=== PATIENT | female | born 1955 | race Caucasian/White ===

== ENCOUNTER 2018-04-29 07:46 | Inpatient (IN) | payer MEDICARE, MEDICAID, SELFPAY ==
[2018-04-24 12:44] VITALS: BMI 48.2
[2018-04-29] VITALS (14 sets, daily range): BP systolic 104–154; BP diastolic 47–90; PULSE 61–86; RESP 12–17; TEMP 35.7–36.8; O2SAT 95–100; BMI 48.2
[2018-04-29] MEDS: PREGABALIN 75 MG CAPSULE PO (08:47)
[2018-04-29] MEDS: CELECOXIB 200 MG CAPSULE PO (08:47)
[2018-04-29] MEDS: LACTATED RINGERS 1,000 ML 42 ML IV ×2 (08:47→10:45)
--- NOTE | 2018-04-29 08:53 | SUR.PREOP ---
HELD THE PRESCRIBED TYLENOL THIS A.M. DUE TO PATIENT TOOK HER OWN, TOTAL 1000 MG @ 0530
--- NOTE | 2018-04-29 09:00 | DI.RAD.S_ITS ---
PROCEDURE: XR PELVIS 1-2V INDICATIONS: Postop left total hip arthroplasty TECHNIQUE: 1 view of the lower pelvis acquired. COMPARISON: None. FINDINGS: Bones: Patient is status post left hip arthroplasty, with hardware components in expected positions. The hip joint appears congruent. The visualized bony structures appear intact. Soft tissues: Overlying postoperative changes are noted. No suspicious soft tissue densities. Small electrode overlies the sacrum. IMPRESSION: Expected appearance of left hip arthroplasty. Dictated by: Rajani Petersno M.D. on 04/29/2018 at 14:35 Approved by: Rajani Peterson M.D. on 04/29/2018 at 14:36
--- NOTE | 2018-04-29 09:00 | DI.RAD.S_ITS ---
PROCEDURE: XR CHEST 2V INDICATIONS: history of COPD TECHNIQUE: 2 views of the chest were acquired. COMPARISON: [facility], CR, XR CHEST 1 VIEW, 09/28/2017, 13:30. FINDINGS: Surgical changes and devices: Lower cervical spine fixation hardware. Lungs and pleura: Lungs are clear. No pleural effusions or pneumothorax. Mediastinum: Mediastinal contours are normal. Heart size is prominent as before. Bones and chest wall: No suspicious bony abnormalities. Soft tissues appear unremarkable. IMPRESSION: No acute cardiopulmonary disease. Dictated by: Stewart Luciano [facility] Interpreted: Juan Oakley MD on 04/29/2018 at 8:20 Approved by: Juan Oakley M.D. on 04/29/2018 at 14:19
--- NOTE | 2018-04-29 09:22 | PM.PREOP ---
Pre-operative Note Interval Note History & Physical reviewed/Exam performed by Physician: Yes Changes to H&P: No
[2018-04-29] MEDS: CEFAZOLIN 2 GM/100 ML FROZ.PIGGY IV (09:40)
--- NOTE | 2018-04-29 10:10 | SUR.OPER ---
Right Lateral on padded OR bed. Gel axillary roll. Arms secured on padded armboard with pillow supporting top arm. Padded hip positioner braces x4 - anterior and posterior chest and pelvis. Additional gel pad used anterior pelvis. Gel pad under bottom leg from knee to foot and secured with tape over sheet.
[2018-04-29] MEDS: BUPIVACAINE 0.25% W/ EPI VIAL 50 ML INJ (10:16)
[2018-04-29] MEDS: TRANEXAMIC ACID 1,000 MG VIAL 1000 MG IV ×2 (10:20→11:10)
--- NOTE | 2018-04-29 11:05 | PC.NURSE ---
Day shift: Pt not on AC unit at this time.
--- NOTE | 2018-04-29 11:50 | PM.OP.1 ---
Operative Date/Time/Diagnoses Date of procedure: 04/29/18 Time of procedure: 11:50 Pre-op diagnosis: Left hip degenerative joint disease Post-op diagnosis: same Procedure & Clinicians Procedure: Left total hip arthroplasty (CPT code 46091 with assistant elementary teacher) Same procedure as scheduled: Yes Indications: Patient is an 62-year-old female with severe left hip DJD. The patient has pain with activities and at rest, limited ambulation and activity tolerance, difficulties with ADLs, and failure of conservative treatment. We have discussed the nature of condition, treatment options, risks and benefits, and patient elects to proceed with total hip arthroplasty and gives informed consent. Surgeon: Jimmy Peterson Rn Labor And Delivery: Shivam Gan Anesthesia Type: General and Spinal Operative Notes Closure Type: primary Specimen(s): none sent Prosthetic devices, grafts, tissues, transplants, or devices: Acetabulum: Denis and Nephew R3 acetabular component size 46 mm Femoral component: Denis and Nephew Anthology stem size 3 with standard offset Femoral head: 28 mm + 0 Oxinium Estimated Blood Loss (mL): 150 Blood products transfused: none Procedure in detail: After satisfaction induction of anesthetic, and administration of IV antibiotics, the patient was positioned in the lateral decubitus position with all bony prominences well padded and pelvic position secured using a hip almond pan finisher positioning device. Left hip and lower extremity prepped and draped in the usual sterile fashion, 1st dose of intravenous tranexamic acid was administered, then a longitudinal incision was created centered over the greater trochanter and carried sharply through the skin and subcutaneous tissues down to the fascia justice which was divided longitudinally and retracted with a Charnley retractor. External rotators visualize, cut, tagged, and retracted posteriorly, then the capsule was cut in a T-type fashion with the corners tagged and retracted. Hip was dislocated and femoral neck cut made according to preoperative templating. Acetabular retractors then placed, and the acetabular labrum and osteophytes were excised. The acetabulum was then sequentially reamed to 45 mm with an excellent circumferential ream and fit with the trial. The trial component was removed and a permanent size 46 mm Denis and Nephew R3 acetabular component was selected, positioned, and impacted with satisfactory position and fixation achieved. Permanent liner was then inserted with the elevated lip directed posteriorly. Soft tissue then removed off the lateral femoral neck in the lateral neck was entered using a box osteotome. T-handled reamers placed down the canal followed by sequential broaching to 3 with the final broach left in place for trial reduction which demonstrated excellent leg length, range of motion, and stability characteristics with a 28 mm +0 trial ball. The trial and broach were removed, and a permanent size 3 Denis and Nephew Anthology stem was selected and inserted with excellent position and fixation achieved. Another trial reduction yielded the above characteristics so the trial ball was exchanged for a permanent 28 mm +0 Oxinium ball. The hip was irrigated and reduced and excellent leg length range of motion and stability characteristics were achieved and maintained. Periarticular tissues were infiltrated with Marcaine. The hip was copiously irrigated, and the capsule repaired with #2 Ethibond, and the piriformis was repaired back to the greater trochanter with the same. Fascia justice closed with interrupted #1 Ethibond sutures, and the subcutaneous tissues were closed in 2 layers of 0 Vicryl and 2 0 Vicryl. Skin was closed with abel and sterile dressings applied. Second dose of tranexamic acid was administered intravenously, and the anesthetic was terminated. Complications: none Condition: stable Disposition: PACU Plan for aftercare: Patient will be admitted to the acute care james, and anticipate discharge on postop day 1 or 2 with follow-up in office in 10-14 days. Outpatient physical therapy will be arranged and patient will continue to observe posterior hip precautions. Patient will continue use of postoperative Lovenox for 10 days postop.
--- NOTE | 2018-04-29 11:53 | P.OP_ITS ---
Operative Date/Time/Diagnoses Date of procedure: 04/29/18 Time of procedure: 11:50 Pre-op diagnosis: Left hip degenerative joint disease Post-op diagnosis: same Procedure & Clinicians Procedure: Left total hip arthroplasty (CPT code 55421 with real estate executive assistant) Same procedure as scheduled: Yes Indications: Patient is an 62-year-old female with severe left hip DJD. The patient has pain with activities and at rest, limited ambulation and activity tolerance, difficulties with ADLs, and failure of conservative treatment. We have discussed the nature of condition, treatment options, risks and benefits, and patient elects to proceed with total hip arthroplasty and gives informed consent. Surgeon: Jimmy Peterson Sped Teacher: Shivam Gan Anesthesia Type: General and Spinal Operative Notes Closure Type: primary Specimen(s): none sent Prosthetic devices, grafts, tissues, transplants, or devices: Acetabulum: Denis and Nephew R3 acetabular component size 46 mm Femoral component: Denis and Nephew Anthology stem size 3 with standard offset Femoral head: 28 mm + 0 Oxinium Estimated Blood Loss (mL): 150 Blood products transfused: none Procedure in detail: After satisfaction induction of anesthetic, and administration of IV antibiotics, the patient was positioned in the lateral decubitus position with all bony prominences well padded and pelvic position secured using a hip supervisor welding equipment repairer positioning device. Left hip and lower extremity prepped and draped in the usual sterile fashion, 1st dose of intravenous tranexamic acid was administered, then a longitudinal incision was created centered over the greater trochanter and carried sharply through the skin and subcutaneous tissues down to the fascia justice which was divided longitudinally and retracted with a Charnley retractor. External rotators visualize, cut, tagged, and retracted posteriorly, then the capsule was cut in a T-type fashion with the corners tagged and retracted. Hip was dislocated and femoral neck cut made according to preoperative templating. Acetabular retractors then placed, and the acetabular labrum and osteophytes were excised. The acetabulum was then sequentially reamed to 45 mm with an excellent circumferential ream and fit with the trial. The trial component was removed and a permanent size 46 mm Denis and Nephew R3 acetabular component was selected, positioned, and impacted with satisfactory position and fixation achieved. Permanent liner was then inserted with the elevated lip directed posteriorly. Soft tissue then removed off the lateral femoral neck in the lateral neck was entered using a box osteotome. T- handled reamers placed down the canal followed by sequential broaching to 3 with the final broach left in place for trial reduction which demonstrated excellent leg length, range of motion, and stability characteristics with a 28 mm +0 trial ball. The trial and broach were removed, and a permanent size 3 Denis and Nephew Anthology stem was selected and inserted with excellent position and fixation achieved. Another trial reduction yielded the above characteristics so the trial ball was exchanged for a permanent 28 mm +0 Oxinium ball. The hip was irrigated and reduced and excellent leg length range of motion and stability characteristics were achieved and maintained. Periarticular tissues were infiltrated with Marcaine. The hip was copiously irrigated, and the capsule repaired with #2 Ethibond, and the piriformis was repaired back to the greater trochanter with the same. Fascia justice closed with interrupted #1 Ethibond sutures, and the subcutaneous tissues were closed in 2 layers of 0 Vicryl and 2 0 Vicryl. Skin was closed with abel and sterile dressings applied. Second dose of tranexamic acid was administered intravenously, and the anesthetic was terminated. Complications: none Condition: stable Disposition: PACU Plan for aftercare: Patient will be admitted to the acute care j[facility], and anticipate discharge on postop day 1 or 2 with follow-up in office in 10-14 days. Outpatient physical therapy will be arranged and patient will continue to observe posterior hip precautions. Patient will continue use of postoperative Lovenox for 10 days postop.
--- NOTE | 2018-04-29 12:15 | PC.NURSE ---
Day shift: Pt on unit from PACU at approx 1205. Oriented to room and call light. Tolerating SCD's. Family at bedside for support. Denies nausea. Denies any pain. Bulky dressing is CDI. VS WNL. PPP and CMS ok but sensation not totally returned. On cont. O2 monitor. CPAP in room. Call light in reach. High fall risk. Agrees to not get OOB w/o help and also agrees to follow hip precautions.
[2018-04-29] MEDS: hydrOXYzine pamoate 25 MG CAPSULE PO ×2 (13:19→19:49)
[2018-04-29] MEDS: HYDROMORPHONE 2 MG TABLET PO ×2 (13:19→18:42)
[2018-04-29] MEDS: LACTATED RINGERS 1,000 ML 125 ML IV ×2 (13:20→19:53)
--- NOTE | 2018-04-29 13:50 | PC.NURSE ---
Day shift: Pt hypotensive after getting OOB with PT to the [facility]. BP 69/39. Continue to monitor BP after back in bed. Back in bed now. Pt is clammy. Will notify MD if BP does not return.
[2018-04-29] MEDS: HYDROCODONE/ACET 5/325 TABLET 1 TAB PO ×2 (14:24→19:53)
--- NOTE | 2018-04-29 14:30 | PT.IIE ---
Current Diagnoses Unilateral primary osteoarthritis, left hip (04/29/18) Trochanteric bursitis, left hip (04/29/18) Surgery Performed Operation Date: 04/29/18 10:00 Actual Procedures p Total Hip Arthroplasty(Left) - Jimmy Peterson MD Surgical History (Last Updated 04/24/18 @ 13:21 by Jewell Nelson RN) History of arthroplasty of left knee (Acute) History of arthroplasty of right knee (Acute) History of bilateral carpal tunnel release (Acute) History of partial hysterectomy (Acute ~1981) Hx of cholecystectomy (Acute) Hx of tonsillectomy (Acute) S/P cervical spinal fusion (Acute ~05/2010) Status post implantation of urinary electronic stimulator device (Acute) Medical History (Last Updated 04/24/18 @ 13:21 by Jewell Nelson RN) Anxiety (Acute) Arthritis (Acute) Bronchitis (Acute) COPD (chronic obstructive pulmonary disease) (Acute) Chest pain (Acute ~2014) Chronic back pain (Acute) Chronic neck pain (Acute) Depression (Acute) Diabetes (Acute) Fibromyalgia (Acute) Former smoker (Acute) GERD (gastroesophageal reflux disease) (Acute) Ganglion cyst of dorsum of left wrist (Acute 10/03/16) Generalized headaches (Acute) H/O: hysterectomy (Acute) HTN (hypertension) (Acute) Hyperlipidemia (Acute) Numbness and tingling (Acute) EMILIA on CPAP (Acute) PTSD (post-traumatic stress disorder) (Acute) Pneumonia (Acute) RLS (restless legs syndrome) (Acute) Sciatica (Acute) Urinary incontinence (Acute) Physical Therapy Inpatient Evaluation/Re-Eval M1 PT/OT-IP Prior Functional Status Start: 04/29/18 13:58 Freq: NEEDED Status: Active Protocol: Document 04/29/18 13:59 NFW (Rec: 04/29/18 14:30 NFW [id number]) Medical Review Prior Functional Status Medical History Reviewed Yes Diet/Fluid Consistency Regular Mobility and Gait Patient reports that prior to surgery she would use a SPC prn around her home and outside. Activities of Daily Living and IADL's Patient reports that she was independent with all ADLs and hygiene. She was able to perform necessary activities around the home as needed such as laundry, light housekeeping, grocery shopping . Grocery shopping was difficult but able to complete . The patient does drive. Social History Household Members none Living Arrangements Apartment/Condo Number of Floors (Floors) One Floor Home Environment Standard Height Toilet Tub/Shower Home Equipment Front Wheel Walker Straight Cane Raised Toilet Seat w/Armrests Shuffle Board Operator Grab Bars In Shower Employment Status Retired Additional Social History Comment Patient's boyfriend will be staying with patient for the first 2-3 days. He lives in the same apartment complex as the patient just a few floors below. Apartment building does have an elevator. Patient's tub/shower has a cutout for easier access. M2 PT-IP Current Condition Start: 04/29/18 13:58 Freq: NEEDED Status: Active Protocol: Document 04/29/18 13:59 NFW (Rec: 04/29/18 14:30 NFW [id number]) Physical Therapy Current Condition Current Condition Evaluation Date 04/29/18 Treatment Diagnosis Left Hip Osteoarthritis; s/p L ERIKA 04/29/18 Precautions Posterior Hip Precautions No Hip Flexion > 90 degrees No Hip Internal Rotation No Hip Adduction Other Precautions Pacing of activities. Small steps with transfers. Weight Bearing Status Weight Bearing Status Full Weight Bearing M3 PT-IP Subjective Start: 04/29/18 13:58 Freq: NEEDED Status: Active Protocol: Document 04/29/18 13:59 NFW (Rec: 04/29/18 14:30 NFW [id number]) Subjective Physical Therapy Visit Type Type Initial Evaluation Visit Start Time 13:20 Visit Stop Time 14:00 Total Visit Minutes 40 Physical Therapy Visit Comments Patient Comments Patient states no numbness LEs . Has dire need to use commode. Patient Goals Return to her apartment with boyfriend for assist the first couple of days. M4 PT-IP Mobility and Gait Start: 04/29/18 13:58 Freq: NEEDED Status: Active Protocol: Document 04/29/18 13:59 NFW (Rec: 04/29/18 14:30 NFW [id number]) PT-Bed Mobility Assessment Supine to Sit Supine to Sit Minimal Assistance 1 Person Assistance Sit to Supine Sit to Supine Moderate Assistance 1 Person Assistance Scooting Scooting to Edge of Bed Contact Guard Assistance Scooting Up and Down in Bed Contact Guard Assistance PT-Transfer Assessment Sit to and From Stand Sit to and from Stand Minimal Assistance 1 Person Assistance Equipment Transfer Assistive Device Gait Belt Front Wheeled Walker Orthotic/Prosthetic Devices or Brace: No Transfers Transfer Destination Bed Bedside Commode Transfer Technique Stand Step Pivot Transfer Ability Level of Assist Minimal Assistance 1 Person Assistance Comments Mobility Comments Required review of proper technique to sit up in bed, slide LLE out to side to sit up. Once patient up and on commode she started feeling light headed, nauseated, clammy and cold. Called nursing for assistance. BP dropped from 129/69, pulse 70 to 86/52 to 69/35, pulse 56. Pt able to stand, step pivot transfer back to bed with min assist of three (for safety). Required assist of elevating LLE back into bed. Once supine BP 101/61, pulse 64. M5 PT-IP Objective Assessments Start: 04/29/18 13:58 Freq: NEEDED Status: Active Protocol: Document 04/29/18 13:59 NFW (Rec: 04/29/18 14:30 NFW [id number]) Orientation Orientation/Cognition Level of Alertness Alert Orientation Name Place Situation Language Function Ability No Deficits Noted Safety Awareness Understands Safety Issues Memory Description No Deficits Noted Sensation Assessment Sensation Gross Sensation WNL M7 PT-IP Assessment and Plan Start: 04/29/18 13:58 Freq: NEEDED Status: Active Protocol: Document 04/29/18 13:59 NFW (Rec: 04/29/18 14:30 NFW [id number]) PT Summary Assessment and Plan Potential Rehabilitation Potential Excellent Status of Condition at Evaluation Evolving Summary Impairments Pain ROM Strength Balance Coordination Sensation Tone Bed Mobility Transfers Gait Activity Tolerance Progress Towards Goals Progressing Toward Goals Assessment Summary Patient's surgery late morning today, had episode of hypotension once patient transfered to [facility]. Overall, performance of transfers good. Requires instruction just prior to performing activity. Overall, should do well once stabilized medically with BP. Goals Bed Mobility Goal Independent Transfer Goal Independent Gait Goal Independent Front Wheel Walker Gait Distance 100 Days to Meet Goals 2 Frequency of Treatment Frequency Of Treatment Twice a Day Treatment Plan Physical Therapy Treatment Plan Bed Mobility Training Transfer Training Gait Training Therapeutic Exercise Balance Retraining Post Op Education Hot or Cold Pack Other Recommendations and Next Treatment Could benefit from OT Focus evaluation for assist with dressing/hygiene. Recommendations To Nursing Amount of Assist Needed 1 Person Assist Discharge Recommendations PT Discharge Recommendations Home with Assistance
--- NOTE | 2018-04-29 15:15 | PC.NURSE ---
Day shift: Dr Peterson was made aware of low BP as stated in previous note. Dr Peterson also made aware of Pts pain control. He does not want to change anything at this time. Pt made aware of this.
[2018-04-29] MEDS: ACETAMINOPHEN 325 MG TABLET 975 MG PO (19:38)
[2018-04-29] MEDS: ATORVASTATIN 20 MG TABLET 40 MG PO (19:39)
[2018-04-29] MEDS: GABAPENTIN 100 MG CAPSULE 200 MG PO (19:42)
[2018-04-29] MEDS: LOSARTAN 50 MG TABLET PO (19:43)
[2018-04-29] MEDS: ASPIRIN EC 81 MG TABLET PO (19:44)
[2018-04-29] MEDS: ONDANSETRON 4 MG ODT PO (19:48)
[2018-04-30] VITALS (9 sets, daily range): BP systolic 108–150; BP diastolic 55–79; PULSE 78–100; RESP 12–20; TEMP 36.9–37.3; O2SAT 92–98
[2018-04-30] MEDS: HYDROCODONE/ACET 5/325 TABLET 1 TAB PO ×4 (00:44→20:27)
[2018-04-30] MEDS: HYDROMORPHONE 2 MG TABLET PO ×3 (03:10→12:44)
[2018-04-30] MEDS: ACETAMINOPHEN 325 MG TABLET 975 MG PO ×3 (07:02→20:19)
[2018-04-30 07:12] LABS: Hematocrit 35.4 % (36-46); Hemoglobin 11.7 g/dL (12.0-16.0)
--- NOTE | 2018-04-30 08:28 | PM.PNPO.1 ---
Subjective Date Patient Seen: 04/30/18 Time Patient Seen: 08:28 Interval history: Hospital day 2, postop day 1 following left total hip arthroplasty by Dr. Peterson. Patient states she did get some rest last night. She has remained stable postoperatively. She has been getting [place] 5/325 mg for pain and occasional Dilaudid 2 mg. She is on Lovenox 40 mg q.d.. Her order for postoperative Ancef did not go through. Patient has had some limited PT but they feel she is stable for home. Exam Vital Signs (past 8 hours): - 04/30/18 05:00 04/30/18 07:45 Temperature 98.8 F 98.5 F Pulse Rate 79 80 Respiratory Rate 16 16 Blood Pressure 150/76 H 108/76 Pulse Oximetry 98 96 Oxygen Delivery Method Room Air,CPAP Oxygen Flow Rate 0 Narrative Exam Narrative: Alert, oriented no acute distress resting in bed. Legs. Bulky dressing to left hip is dry without drainage or inflammation. No calf pain or swelling. Pulses symmetrical. Objective Labs Result Diagrams: 04/30/18 06:40 Labs: Laboratory Results - last 24 hr 04/30/18 06:40 Hgb 11.7 L Hct 35.4 L Assessment & Plan Post-op Postoperative Procedures Operation Date: 04/29/18 10:00 Actual Procedures Side Surgeon p Total Hip Arthroplasty Left Jimmy Peterson MD Plan: Patient will stay today for further therapy as she does not feel stable enough for home. She will have 2 doses of Ancef 2 g today. Anticipate discharge home tomorrow if she is stable. She is scheduled to go to [facility].
--- NOTE | 2018-04-30 09:13 | CM.DANOTE ---
Addendum entered by Laura Sawyer LPN 04/30/18 15:11: Received details of the transport from pt. Copy of same to red folder and to DCP/work sheet. Details: Bhanu: code Resv: [id number] d/c home May 01 or >. IH to to call as soon as d/c date is known. (Bhanu also brought pt to the hospital the morning of her surgery). Original Note: Addendum entered by Laura Sawyer LPN 04/30/18 11:28: P: home with Santana's assist and [facility]. All set up with [facility]: need only to notify them of day of d/c. Transport to be set up as per number that will be provided by pt. Original Note: Discharge Planning/Care Management DCP: assessment: case received, EMR reviewed and met with pt this morning. Introduced self and role. Pt is a 62 year old female who admitted yesterday for a planned L ERIKA: surgeon: Dr. Peterson. Posterior precautions. Payer: [facility] Medicare and Medicaid PT is ordered. Ortho SULLY Gardner confirms no need for OT order. Pt confirms that her boyfriend Santana Wager: [phone] will be helping her at home and he will be here today about noon. She says he does not drive so the initial plan she discussed with Dr. Peterson was to have [facility] come to the home for followup therapy. She states that her [facility] insurance has a benefit whereby they will transport her home (they also brought me to the hospital. She has the phone number in her bags and will pull it out when she is able to get up today. Will follow on this. Spoke then with Halie/[facility]ce [facility]AR[facility]. She confirms that she has received all needed information including the Face/Face and the orders for HH PT (she will have the PT assess for ? OT and obtain this if indicated after they see pt at home.) CM Discharge Assessment Start: 04/30/18 09:05 Freq: Status: Active Protocol: Document 04/30/18 09:06 ITV (Rec: 04/30/18 09:13 ITV [id number]) Discharge Planning Assessment Advance Directives? No: Declines further information, has paperwork at home Advance Directives on File No History Provided By Patient Medical Record Prior Living Arrangements Apartment/Condo Household Members none Independent with ADL's Yes Is patient alert and oriented? Yes Referrals Initiated Home Health Additional Comment Dr. Peterson and pt had chosen [facility] prior to this admission. Pt confirms same Halie/[facility] has requested initial clinical: TWIN Bell has faxed this. Whiteboard Updated in Patient Room with Yes name and ext. # of Electronic Resources Librarian Review Status In Process Next Review Type Continued Stay Review Pre-Anesthesia Assessment Start: 04/24/18 12:44 Freq: Status: Complete Protocol: Document 04/24/18 12:44 CAB (Rec: 04/24/18 13:37 CAB [id number]) Pre-Anesthesia Assessment PAC Comment Anesthesia review - requests CXR pre-op. SNO ordering on admit Patient Information Reviewed Via Phone Assessment Assessment Completed With Patient Diagnostic Results BMP/CMP CBC EKG Primary Care Provider David Gonzales Medical Clearance Received Yes Seen Specialist in Last 12 Months Yes Specialist Seen Orthopedist Primary Language [place] Shipfitter Helper Required No Height 154.94 cm Weight 115.666 kg Body Mass Index (BMI) 48.2 Hearing Ability Normal Visual Assist Glasses Dentition Type Full- Upper & Lower Barriers to Learning Visual Other Aids Yes: CPAP Hx Anesthesia Reactions No Hx Family Anesthesia Reaction No Hx Malignant Hyperthermia No Hx Blood Transfusions No Anesthesia Review Requested Yes: Surgeon requested re: Sleep Apnea, BMI, Diabetes Cardiac Rn No alcohol intake current alcohol intake frequency holidays/special occasions only Smoking Status Former smoker Tobacco type cigarettes how long ago did patient quit smoking Quit greater than 20 years ago Substance Use Type does not use Pain Present Pain Reported Musculoskeletal Symptoms Abnormal Gait Back Pain Difficulty Walking Joint Pain Neck Pain Numbness Radiating Pain into Limb History of Falling (Recent or History of No ) Patient is completely paralyzed or No completely immobile Prosthesis or Orthotic Device Cane Mental Status Oriented to own ability Is patient on oxygen? No Does patient have SANZ/SOB Yes: Hx COPD, pt c/o increase sob r/t current cold weather Hx Sleep Apnea Yes CPAP/BIPAP use prescribed and used routinely Will Bring CPAP/BIPAP DOS Yes Currently Taking a Beta Manda No Can You Climb a Flight of Stairs Without No: Hx COPD, pt c/o increase SOB sob r/t current cold weather Hx Chest Pain Yes: Occasional, goes away with rest, Cardiac w/u 2015- normal Hx SOB Yes: Hx COPD, pt c/o increase sob r/t current cold weather Hx Syncope or Dizziness Yes: Occasional pt feels r/t moving too fast Anti-Coagulant Therapy No Has a Community Recreation Coordinator No Cardiac Testing No Hx Pacemaker/ICD No Pacemaker Rep Required? No Cardiac Clearance Received Not Applicable Diet Type At Home Regular dysphagia Yes: Every once in awhile Bladder Pattern Urgency Urinary Catheter Present No Hx Urinary Self Catheterization No Comment Pt has a urinary nerve stimulator implanted to right buttock Diabetes Yes: Pt checks BS a couple times a week HgbA1C 6.4 Date 03/21/18 Patient No Lactating No Hx Drug Resistant Organism No Presence of External or Internal Medical Yes: Urinary nerve stimulator Devices to right buttock Have you traveled outside the [facility] in the last 30 days? Marital Status Lives With none Prior Living Arrangements Apartment/Condo Number of Floors (Floors) One Floor Support System Parent(s) Significant Other Does the Patient Have Assistance After Yes Surgery Patient Discharge Plan Description Return Home Comment Pt advised 1-2 day length of stay per surgeon's office. BF will assist @ DC Feels Safe in Current Environment Yes Been Physically Hurt or Threatened By a No Person in Current Environment Do you have thoughts of harming yourself None or others? Are you currently considering suicide? No Do you have a plan to hurt yourself or No Plan others? Do You Have Any Spiritual Beliefs That No May Affect Your HC Choices? Do You Have Any Cultural Practices That No May Affect Your HC Choices? Spiritual Referral None Who Can We Speak to About Patient's Care Family, friends Identifying Code for Release of Patient Declines to issue Information Health Care Proxy/Next of Kin Juliette (Mother) Health Care Proxy Emergency Contact Name Santana (boyfriend) Emergency Contact Advance Directives? No: Declines further information, has paperwork at home Advance Directives on File No Requested Patient Bring Advanced Yes Directives DOS Power of Metal Hanger No PAC Instructions Bring CPAP/BIPAP Do not shave/clip surgical site Durable medical equipment Medications to take/avoid Nasal antibiotic No ETOH/petroleum product on skin DOS NPO Pre-surgical wash Sensory aids Sturdy shoes/comfortable clothes Do not bring valuables and remove jewelry
[2018-04-30] MEDS: DULOXETINE 20 MG CAPSULE 40 MG PO (09:22)
[2018-04-30] MEDS: SODIUM CHLORIDE 0.9% FLUSH 10 ML IV ×2 (09:23→20:21)
[2018-04-30] MEDS: GABAPENTIN 100 MG CAPSULE 200 MG PO ×3 (09:23→20:20)
[2018-04-30] MEDS: ENOXAPARIN 40 MG/0.4 ML SYRINGE SUBCUT (09:23)
[2018-04-30] MEDS: hydrOXYzine pamoate 25 MG CAPSULE PO ×2 (09:24→20:22)
[2018-04-30] MEDS: CEFAZOLIN 2 GM/100 ML FROZ.PIGGY IV ×2 (09:58→17:53)
--- NOTE | 2018-04-30 12:53 | PT.IPTN ---
Current Diagnoses Unilateral primary osteoarthritis, left hip (04/29/18) Trochanteric bursitis, left hip (04/29/18) Surgery Performed Operation Date: 04/29/18 10:00 Actual Procedures p Total Hip Arthroplasty(Left) - Jimmy Peterson MD Physical Therapy Treatment Note M2 PT-IP Current Condition Start: 04/29/18 13:58 Freq: NEEDED Status: Active Protocol: Document 04/29/18 13:59 NFW (Rec: 04/29/18 14:30 NFW [id number]) Physical Therapy Current Condition Current Condition Evaluation Date 04/29/18 Treatment Diagnosis Left Hip Osteoarthritis; s/p L ERIKA 04/29/18 Precautions Posterior Hip Precautions No Hip Flexion > 90 degrees No Hip Internal Rotation No Hip Adduction Other Precautions Pacing of activities. Small steps with transfers. Weight Bearing Status Weight Bearing Status Full Weight Bearing M3 PT-IP Subjective Start: 04/29/18 13:58 Freq: NEEDED Status: Active Protocol: Document 04/30/18 11:50 NFW (Rec: 04/30/18 12:53 NFW [id number]) Subjective Physical Therapy Visit Type Type Treatment Note Visit Start Time 11:50 Visit Stop Time 12:19 Total Visit Minutes 29 Number of AUDITING CODER Visits 0 Physical Therapy Visit Comments Patient Comments Has been up a couple of times this am. Therapy Pain Assessment Pain When Pain Assessed At Rest Pain Present Pain Present Pain Reported Location Left Hip Intensity 5 Scale Used Numeric (1 - 10) Description Aching Sharp M4 PT-IP Mobility and Gait Start: 04/29/18 13:58 Freq: NEEDED Status: Active Protocol: Document 04/30/18 11:50 NFW (Rec: 04/30/18 12:53 NFW [id number]) PT-Bed Mobility Assessment Supine to Sit Supine to Sit Moderate Assistance 1 Person Assistance Sit to Supine Sit to Supine Minimal Assistance 1 Person Assistance Scooting Scooting to Edge of Bed Contact Guard Assistance Scooting Up and Down in Bed Contact Guard Assistance PT-Transfer Assessment Sit to and From Stand Sit to and from Stand Contact Guard Assistance 1 Person Assistance Equipment Transfer Assistive Device Gait Belt Front Wheeled Walker Orthotic/Prosthetic Devices or Brace: No Transfers Transfer Destination Bed Transfer Technique Stand Step Pivot Transfer Ability Level of Assist Contact Guard Assistance 1 Person Assistance Comments Mobility Comments Most difficulty going from supine to sitting requiring moderate assist. Otherwise, patient does well with CGA and verbal cuing. Minimal change in BP with change of position going from 141/66 supine to 156/72 sitting. Gait Assessment Gait Gait Assistance Required: Contact Guard Assist 1 Person Assist Distance (Feet) 100 Able to Maintain Weight Bearing Status No During Gait Assistive Devices Assistive Device Gait Belt Front Wheeled Walker Orthotic/Prosthetic Devices or Brace: No Gait Deviations General Gait Pattern Decreased Stride Length Decreased Feet Clearance Factors Limiting Gait Function Factors Limiting Gait Function Abnormal Tonal Influences Decreased Activity Tolerance Decreased Strength Limited Range of Motion Pain Comments Gait Comments Verbal cuing for proper technique in using FWW. Patient reports increase pain with FWB onto LLE, therefore shifting wt onto UEs as needed . Cuing to decrease stride length on left and increase on right. Cuing to increase hip /knee flexion at the initiation of swing phase LLE. M5 PT-IP Objective Assessments Start: 04/29/18 13:58 Freq: NEEDED Status: Active Protocol: Document 04/30/18 11:50 NFW (Rec: 04/30/18 12:53 NFW [id number]) Orientation Orientation/Cognition Level of Alertness Alert M6 PT-IP Treatment Start: 04/29/18 13:58 Freq: NEEDED Status: Active Protocol: Document 04/30/18 11:50 NFW (Rec: 04/30/18 12:53 NFW [id number]) Physical Therapy Treatment Exercises Exercises Ankle Pumps Gluteal Sets Quad Sets Heel Slides Education Education Provided Precautions Weight Bearing Status M7 PT-IP Assessment and Plan Start: 04/29/18 13:58 Freq: NEEDED Status: Active Protocol: Document 04/30/18 11:50 NFW (Rec: 04/30/18 12:53 NFW [id number]) PT Summary Assessment and Plan Summary Progress Towards Goals Progressing Toward Goals Assessment Summary BP has stabilized. Most difficulty with sitting from supine otherwise does quite well. Endurance low, quite fatigued after walk and transitional activities. Frequency of Treatment Frequency Of Treatment Twice a Day Recommendations To Nursing Amount of Assist Needed 1 Person Assist Discharge Recommendations PT Discharge Recommendations Home with Assistance
--- NOTE | 2018-04-30 15:25 | PT.IPTN ---
Current Diagnoses Unilateral primary osteoarthritis, left hip (04/29/18) Trochanteric bursitis, left hip (04/29/18) Surgery Performed Operation Date: 04/29/18 10:00 Actual Procedures p Total Hip Arthroplasty(Left) - Jimmy Peterson MD Physical Therapy Treatment Note M2 PT-IP Current Condition Start: 04/29/18 13:58 Freq: NEEDED Status: Active Protocol: Document 04/29/18 13:59 NFW (Rec: 04/29/18 14:30 NFW [id number]) Physical Therapy Current Condition Current Condition Evaluation Date 04/29/18 Treatment Diagnosis Left Hip Osteoarthritis; s/p L ERIKA 04/29/18 Precautions Posterior Hip Precautions No Hip Flexion > 90 degrees No Hip Internal Rotation No Hip Adduction Other Precautions Pacing of activities. Small steps with transfers. Weight Bearing Status Weight Bearing Status Full Weight Bearing M3 PT-IP Subjective Start: 04/29/18 13:58 Freq: NEEDED Status: Active Protocol: Document 04/30/18 15:08 NFW (Rec: 04/30/18 15:25 NFW [email or web address]) Subjective Physical Therapy Visit Type Type Treatment Note Visit Start Time 14:40 Visit Stop Time 15:07 Total Visit Minutes 27 Number of REHABILITATION THERAPY AIDE Visits 0 Physical Therapy Visit Comments Patient Comments Tired even thought she feels like she has slept most of the day. Pt seen to assist from commode. M4 PT-IP Mobility and Gait Start: 04/29/18 13:58 Freq: NEEDED Status: Active Protocol: Document 04/30/18 15:08 NFW (Rec: 04/30/18 15:25 NFW [id number]) PT-Bed Mobility Assessment Sit to Supine Sit to Supine Minimal Assistance 1 Person Assistance Scooting Scooting to Edge of Bed Contact Guard Assistance Scooting Up and Down in Bed Contact Guard Assistance PT-Transfer Assessment Sit to and From Stand Sit to and from Stand Contact Guard Assistance 1 Person Assistance Equipment Transfer Assistive Device Gait Belt Front Wheeled Walker Orthotic/Prosthetic Devices or Brace: No Transfers Transfer Destination Bed Chair Transfer Technique Stand Step Pivot Transfer Ability Level of Assist Contact Guard Assistance 1 Person Assistance Gait Assessment Gait Gait Assistance Required: Contact Guard Assist 1 Person Assist Distance (Feet) 120 Able to Maintain Weight Bearing Status No During Gait Assistive Devices Assistive Device Gait Belt Front Wheeled Walker Orthotic/Prosthetic Devices or Brace: No Gait Deviations General Gait Pattern Decreased Stride Length Decreased Feet Clearance Factors Limiting Gait Function Factors Limiting Gait Function Abnormal Tonal Influences Decreased Activity Tolerance Decreased Strength Limited Range of Motion Pain Comments Gait Comments Notable wb on UEs during stance phase of LLE. Technique in ambulation improved with equal strides and improved clearance. Overall, endurance low. M5 PT-IP Objective Assessments Start: 04/29/18 13:58 Freq: NEEDED Status: Active Protocol: Document 04/30/18 11:50 NFW (Rec: 04/30/18 12:53 NFW [id number]) Orientation Orientation/Cognition Level of Alertness Alert M6 PT-IP Treatment Start: 04/29/18 13:58 Freq: NEEDED Status: Active Protocol: Document 04/30/18 15:08 NFW (Rec: 04/30/18 15:25 NFW [email or web address]) Physical Therapy Treatment Exercises Exercises Ankle Pumps Gluteal Sets Quad Sets Education Education Provided Precautions Weight Bearing Status M7 PT-IP Assessment and Plan Start: 04/29/18 13:58 Freq: NEEDED Status: Active Protocol: Document 04/30/18 15:08 NFW (Rec: 04/30/18 15:25 NFW [email or web address]) PT Summary Assessment and Plan Summary Impairments Pain ROM Strength Balance Coordination Tone Bed Mobility Transfers Gait Activity Tolerance Assessment Summary Pt progressing with treatment. She is anxious about returning home for fear of losing her balance and falling . Frequency of Treatment Frequency Of Treatment Twice a Day Treatment Plan Physical Therapy Treatment Plan Bed Mobility Training Transfer Training Gait Training Therapeutic Exercise Balance Retraining Post Op Education Hot or Cold Pack Recommendations To Nursing Amount of Assist Needed 1 Person Assist Discharge Recommendations PT Discharge Recommendations Home with Assistance
[2018-04-30] MEDS: FLUTICASONE 220MCG HFA 120 PUFF INH (17:57)
[2018-04-30] MEDS: ATORVASTATIN 20 MG TABLET 40 MG PO (20:20)
[2018-04-30] MEDS: LOSARTAN 50 MG TABLET PO (20:20)
[2018-05-01] VITALS (8 sets, daily range): BP systolic 103–146; BP diastolic 48–74; PULSE 80–90; RESP 12–20; TEMP 36.5–37.5; O2SAT 91–98
[2018-05-01] MEDS: HYDROCODONE/ACET 5/325 TABLET 1 TAB PO ×5 (02:27→23:50)
[2018-05-01] MEDS: hydrOXYzine pamoate 25 MG CAPSULE PO ×2 (02:27→23:50)
[2018-05-01] MEDS: ACETAMINOPHEN 325 MG TABLET 975 MG PO ×2 (08:19→20:29)
[2018-05-01] MEDS: ENOXAPARIN 40 MG/0.4 ML SYRINGE SUBCUT (08:20)
[2018-05-01] MEDS: DULOXETINE 20 MG CAPSULE 40 MG PO (08:20)
[2018-05-01] MEDS: ASPIRIN EC 81 MG TABLET PO (08:20)
[2018-05-01] MEDS: GABAPENTIN 100 MG CAPSULE 200 MG PO ×2 (08:21→20:29)
[2018-05-01] MEDS: SODIUM CHLORIDE 0.9% FLUSH 10 ML IV (08:22)
--- NOTE | 2018-05-01 08:23 | PM.PNPO.1 ---
Subjective Date Patient Seen: 05/01/18 Time Patient Seen: 08:23 Interval history: Hospital day 3, postop day 2 following left total hip arthroplasty. Patient has been up off and on out of bed. [place] unsteady at times. PT has recommended patient be at home with home health PT. [facility] has been set up. She is using [place] 5/325 mg for pain. Exam Vital Signs (past 8 hours): - 05/01/18 05:25 05/01/18 07:34 Temperature 99.3 F Pulse Rate 85 Respiratory Rate 18 16 Blood Pressure 132/62 146/74 H Pulse Oximetry 95 98 Oxygen Delivery Method Room Air Oxygen Flow Rate 0 Narrative Exam Narrative: Alert, oriented no acute distress lying in bed. Legs. Bulky dressing to left hip is dry without drainage or inflammation. No calf pain or swelling. Pulses symmetrical. Objective Labs Result Diagrams: 04/30/18 06:40 Assessment & Plan Post-op Postoperative Procedures Operation Date: 04/29/18 10:00 Actual Procedures Side Surgeon p Total Hip Arthroplasty Left Jimmy Peterson MD Plan: We will change the dressing to CovRsite dressing. Will have patient work with physical therapy today. Anticipate discharge home tomorrow if she is stable and cleared by PT.
--- NOTE | 2018-05-01 10:23 | CM.DPC ---
DCP Cont: Checked in with patient. Pleasant. Lives in [place]. Discussed possible plan for discharge tomorrow. Confirmed with her that [facility] has already been set up at pre-operative appt. Also, have number to call for patient for transportation when she is ready for discharge. P: DCP to continue to follow. Patient should be discharged tomorrow if she is medically stable. Jess Rivera RN/Assembly Supervisor
--- NOTE | 2018-05-01 10:29 | PT.IPTN ---
Current Diagnoses Unilateral primary osteoarthritis, left hip (04/29/18) Trochanteric bursitis, left hip (04/29/18) Surgery Performed Operation Date: 04/29/18 10:00 Actual Procedures p Total Hip Arthroplasty(Left) - Jimmy Peterson MD Physical Therapy Treatment Note M2 PT-IP Current Condition Start: 04/29/18 13:58 Freq: NEEDED Status: Active Protocol: Document 04/29/18 13:59 NFW (Rec: 04/29/18 14:30 NFW [id number]) Physical Therapy Current Condition Current Condition Evaluation Date 04/29/18 Treatment Diagnosis Left Hip Osteoarthritis; s/p L ERIKA 04/29/18 Precautions Posterior Hip Precautions No Hip Flexion > 90 degrees No Hip Internal Rotation No Hip Adduction Other Precautions Pacing of activities. Small steps with transfers. Weight Bearing Status Weight Bearing Status Full Weight Bearing M3 PT-IP Subjective Start: 04/29/18 13:58 Freq: NEEDED Status: Active Protocol: Document 05/01/18 10:22 SA (Rec: 05/01/18 10:29 [email or web address]) Subjective Physical Therapy Visit Type Type Treatment Note Visit Start Time 09:05 Visit Stop Time 09:36 Total Visit Minutes 31 Number of BRICK KILN BURNER Visits 1 Physical Therapy Visit Comments Patient Comments Pt up in chair and agreeable to PT, reports feeling dizzy at times. Patient Goals Return to her apartment with boyfriend for assist the first couple of days. Therapy Pain Assessment Pain When Pain Assessed During Mobility Pain Present Pain Present Pain Reported Location Left Hip Intensity 5 Scale Used Numeric (1 - 10) Pain Management Techniques Apply Cold Modification of Treatment Re-positioning Timing of Activity with Medications M4 PT-IP Mobility and Gait Start: 04/29/18 13:58 Freq: NEEDED Status: Active Protocol: Document 05/01/18 10:22 SA (Rec: 05/01/18 10:29 [id number]) PT-Bed Mobility Assessment Supine to Sit Supine to Sit Minimal Assistance 1 Person Assistance Sit to Supine Sit to Supine Minimal Assistance 1 Person Assistance Scooting Scooting to Edge of Bed Contact Guard Assistance Scooting Up and Down in Bed Contact Guard Assistance PT-Transfer Assessment Sit to and From Stand Sit to and from Stand Contact Guard Assistance 1 Person Assistance Equipment Transfer Assistive Device Gait Belt Front Wheeled Walker Orthotic/Prosthetic Devices or Brace: No Transfers Transfer Destination Bed Chair Transfer Technique Stand Step Pivot Transfer Ability Level of Assist Contact Guard Assistance 1 Person Assistance Comments Mobility Comments Pt completed 5 Sit<>Stands from chair with SBA. Stand pivot txs with SBA-CGA and min cues. Supine<>sit with Min A to alexeimark LEs. Gait Assessment Gait Gait Assistance Required: Contact Guard Assist 1 Person Assist Distance (Feet) 75 Able to Maintain Weight Bearing Status No During Gait Assistive Devices Assistive Device Gait Belt Front Wheeled Walker Orthotic/Prosthetic Devices or Brace: No Gait Deviations General Gait Pattern Decreased Stride Length Decreased Feet Clearance Factors Limiting Gait Function Factors Limiting Gait Function Decreased Activity Tolerance Decreased Strength Limited Range of Motion Pain Comments Gait Comments Slow antalgic gait with cues for increasing step length and decreasing WBing through UEs. Pt uses FWW safely and c/o some dizziness but no LOB noted. Pt BPs WNLs. Stair Climbing Assessment Comments Stair Climbing Comments Pt lives in senior apartment with no stairs to enter. PT-Balance Assessment Comments Other Balance Tests/Deviations/Treatment Pt stood at sink x 4 min to : don dentures and wash face and hands with no LOB. M5 PT-IP Objective Assessments Start: 04/29/18 13:58 Freq: NEEDED Status: Active Protocol: Document 04/30/18 11:50 NFW (Rec: 04/30/18 12:53 NFW [id number]) Orientation Orientation/Cognition Level of Alertness Alert M6 PT-IP Treatment Start: 04/29/18 13:58 Freq: NEEDED Status: Active Protocol: Document 05/01/18 10:22 SA (Rec: 05/01/18 10:29 [id number]) Physical Therapy Treatment Exercises Exercises Ankle Pumps Gluteal Sets Quad Sets Education Education Provided Precautions Weight Bearing Status M7 PT-IP Assessment and Plan Start: 04/29/18 13:58 Freq: NEEDED Status: Active Protocol: Document 05/01/18 10:22 SA (Rec: 05/01/18 10:29 [id number]) PT Summary Assessment and Plan Potential Rehabilitation Potential Excellent Status of Condition at Evaluation Stable Summary Assessment Summary Pt progressing well with mobility, does have some anxiety about returning home but has help available and uses FWW safely. Frequency of Treatment Frequency Of Treatment Twice a Day Treatment Plan Physical Therapy Treatment Plan Bed Mobility Training Transfer Training Gait Training Therapeutic Exercise Balance Retraining Post Op Education Hot or Cold Pack Recommendations To Nursing Amount of Assist Needed 1 Person Assist Discharge Recommendations PT Discharge Recommendations Home with Assistance
[2018-05-01] MEDS: FLUTICASONE 220MCG HFA 120 PUFF INH ×2 (11:14→19:36)
--- NOTE | 2018-05-01 14:22 | PT.IPTN ---
Current Diagnoses Unilateral primary osteoarthritis, left hip (04/29/18) Trochanteric bursitis, left hip (04/29/18) Surgery Performed Operation Date: 04/29/18 10:00 Actual Procedures p Total Hip Arthroplasty(Left) - Jimmy Peterson MD Physical Therapy Treatment Note M2 PT-IP Current Condition Start: 04/29/18 13:58 Freq: NEEDED Status: Active Protocol: Document 04/29/18 13:59 NFW (Rec: 04/29/18 14:30 NFW [id number]) Physical Therapy Current Condition Current Condition Evaluation Date 04/29/18 Treatment Diagnosis Left Hip Osteoarthritis; s/p L ERIKA 04/29/18 Precautions Posterior Hip Precautions No Hip Flexion > 90 degrees No Hip Internal Rotation No Hip Adduction Other Precautions Pacing of activities. Small steps with transfers. Weight Bearing Status Weight Bearing Status Full Weight Bearing M3 PT-IP Subjective Start: 04/29/18 13:58 Freq: NEEDED Status: Active Protocol: Document 05/01/18 14:05 SA (Rec: 05/01/18 14:22 SA [id number]) Subjective Physical Therapy Visit Type Type Treatment Note Visit Start Time 13:02 Visit Stop Time 13:30 Total Visit Minutes 28 Number of HEAD ORTHOPEDIC TEAM PHYSICIAN Visits 2 Physical Therapy Visit Comments Patient Comments Pt sleeping after lunch this afternoon, agreeable to get up and have PT. Patient Goals To return home with her boyfriend to help. Therapy Pain Assessment Pain When Pain Assessed During Mobility Pain Present Pain Present Pain Reported Location Left Hip Intensity 4 Scale Used Numeric (1 - 10) Pain Management Techniques Apply Cold Modification of Treatment Re-positioning Timing of Activity with Medications M4 PT-IP Mobility and Gait Start: 04/29/18 13:58 Freq: NEEDED Status: Active Protocol: Document 05/01/18 14:05 SA (Rec: 05/01/18 14:22 SA [id number]) PT-Bed Mobility Assessment Rolling Type of Rolling Roll to Right Level of Assist Contact Guard Assistance Supine to Sit Supine to Sit Minimal Assistance 1 Person Assistance Sit to Supine Sit to Supine Minimal Assistance 1 Person Assistance Scooting Scooting to Edge of Bed Standby Assistance Scooting Up and Down in Bed Standby Assistance PT-Transfer Assessment Sit to and From Stand Sit to and from Stand Standby Assistance 1 Person Assistance Equipment Transfer Assistive Device Gait Belt Front Wheeled Walker Orthotic/Prosthetic Devices or Brace: No Transfers Transfer Destination Bed Toilet Transfer Technique Stand Step Pivot Transfer Ability Level of Assist Standby Assistance 1 Person Assistance Comments Mobility Comments PT CGA-SBA with all mobilities except SUP<>Sit where she needs Min A to get LLE over EOB. Gait Assessment Gait Gait Assistance Required: Contact Guard Assist 1 Person Assist Distance (Feet) 100 Able to Maintain Weight Bearing Status No During Gait Assistive Devices Assistive Device Gait Belt Front Wheeled Walker Orthotic/Prosthetic Devices or Brace: No Gait Deviations General Gait Pattern Antalgic Decreased Stride Length Decreased Feet Clearance Factors Limiting Gait Function Factors Limiting Gait Function Decreased Activity Tolerance Decreased Strength Limited Range of Motion Pain Comments Gait Comments Pt continues to ambulate slowly with excessive WBing through LEs, able to increase LLE WBing with cues and normalize gait. PT-Balance Assessment Comments Other Balance Tests/Deviations/Treatment Stand pivot txs on/off toilet : with SBA. Pt has elevated toilet seat at home, increased time for hygiene and cues for hip flexion precuation. M5 PT-IP Objective Assessments Start: 04/29/18 13:58 Freq: NEEDED Status: Active Protocol: Document 04/30/18 11:50 NFW (Rec: 04/30/18 12:53 NFW [id number]) Orientation Orientation/Cognition Level of Alertness Alert M6 PT-IP Treatment Start: 04/29/18 13:58 Freq: NEEDED Status: Active Protocol: Document 05/01/18 14:05 (Rec: 05/01/18 14:22 [id number]) Physical Therapy Treatment Exercises Exercises Ankle Pumps Gluteal Sets Heel Slides Supine Hip Abduction Education Education Provided Precautions Weight Bearing Status Other Treatments Other Treatment Performed Discussed d/c planning with patient. Pt nervous about going home even though she has all needed equipment and boyfriend there to assist her, also has PT set up at after d/c from hospital. M7 PT-IP Assessment and Plan Start: 04/29/18 13:58 Freq: NEEDED Status: Active Protocol: Document 05/01/18 14:05 (Rec: 05/01/18 14:22 [id number]) PT Summary Assessment and Plan Potential Rehabilitation Potential Excellent Status of Condition at Evaluation Stable Summary Impairments Pain ROM Strength Balance Coordination Tone Bed Mobility Transfers Gait Activity Tolerance Assessment Summary Pt SBA-CGA with all mobilities except Sup<>sit but has boyfriend available to assist and has FWW, elevated toilet seat, shower bench. Pt lives in senior apartment with no stairs to enter. Should be ready for d/c tomorrow. Frequency of Treatment Frequency Of Treatment Twice a Day Treatment Plan Physical Therapy Treatment Plan Bed Mobility Training Transfer Training Gait Training Therapeutic Exercise Balance Retraining Post Op Education Hot or Cold Pack Recommendations To Nursing Amount of Assist Needed 1 Person Assist Discharge Recommendations PT Discharge Recommendations Home with Assistance Home Health Other Discharge Recommendations Pt plans to have HHPT after d/ c from hospital. Equipment Needed for Home Before none Discharge
--- NOTE | 2018-05-01 15:19 | PC.NURSE ---
Day Shift. THis morning clarification with SULLY Abad to give both Lovenox and ASA as ordered. Pt is A&O able to make needs known. 1 SBA with FWW. 1230- rates pain 5/10 medicated per emar. 1430-pt is resting comfortably with eyes closed.
[2018-05-01] MEDS: ATORVASTATIN 20 MG TABLET 40 MG PO (20:29)
[2018-05-01] MEDS: LOSARTAN 50 MG TABLET PO (20:30)
[2018-05-02 04:35] VITALS: BP 142/72; PULSE 80; RESP 16; TEMP 36.7; O2SAT 96
[2018-05-02] MEDS: HYDROCODONE/ACET 5/325 TABLET 1 TAB PO ×2 (07:53→13:54)
[2018-05-02] MEDS: hydrOXYzine pamoate 25 MG CAPSULE PO ×2 (07:54→13:54)
--- NOTE | 2018-05-02 07:56 | PM.DS.1 ---
History of Present Illness Date Patient Seen: 05/02/18 Time Patient Seen: 07:56 Chief complaint: Left Total Hip Arthroplasty [id number] Narrative: Hospital day 4, postop day 3 for following left total hip arthroplasty. Patient has remained stable. She has progressed more with physical therapy. Has been recommended that she have home health PT because of limited transportation. [facility] will be seen the patient. Pain has improved. Patient ready for discharge home today. Discharge Providers Date of admission: 04/29/18 07:46 Primary care physician: Wild Rao Consults: 04/29/18 12:14 Consult to Discharge Planning Routine Comment: Consult to Physical Therapy Evaluate & Treat Comment: Physician Instructions: post op ERIKA protocol Consult to Respiratory Therapy Evaluate & Treat Comment: Physician Instructions: Evaluate and treat Discharge provider: Rafa Chisholm PA-C Discharge Date: 05/02/18 Summary Discharge Diagnosis: Status post left total hip arthroplasty. Hospital Course: Patient brought to hospital on 04/29/2018 for above noted surgery. She remained stable postoperatively. Slow progression with physical therapy. Ready for discharge home on postop day 3 with home health PT. Status at Discharge Cognitive/behavioral status at discharge: Alert, oriented no acute distress sitting in chair. Functional status at discharge: uses cane/walker Overall status at discharge: patient is progressing back to baseline Time Spent with Patient Less than 30 minutes Exam Vital Signs (past 8 hours): - 05/02/18 04:35 Temperature 98.1 F Pulse Rate 80 Respiratory Rate 16 Blood Pressure 142/72 H Pulse Oximetry 96 Oxygen Delivery Method Room Air Oxygen Flow Rate 0 Narrative Exam Narrative: Legs. Bulky dressing to left hip incision is dry without drainage or inflammation. No calf pain or swelling. Pulses symmetrical. Patient able do full extension from sitting position. Objective Labs Result Diagrams: 04/30/18 06:40 Discharge Plan Discharge Plan Patient Disposition: Home Discharge comment: Patient discharge home after cleared by PT. CovRsite dressing to left hip incision. Total hip precautions x6 weeks postop. Discharge Med Rec/Prescriptions Prescriptions: New enoxaparin [Lovenox] 40 mg/0.4 mL Syringe 40 mg subcut DAILY Qty: 7 RF: 0 Continued Lantus Solostar U-100 Insulin 100 UNIT/1 ML insulin pen 80 unit SQ QAM Qty: 0 RF: 0 Flovent Diskus 250 MCG blister with device 1 puff INH BID Qty: 0 RF: 0 losartan 50 mg Tablet 50 mg PO BEDTIME RF: 0 atorvastatin 40 mg Tablet 40 mg PO BEDTIME RF: 0 aspirin 81 mg Tablet,Delayed Release (Dr/Ec) 81 mg PO DAILY RF: 0 acetaminophen [Tylenol Extra Strength] 500 mg Tablet 1,000 mg PO TID RF: 0 ranitidine HCl 150 mg Capsule 150 mg PO BID RF: 0 gabapentin 100 mg Capsule 200 mg PO TID RF: 0 ProAir HFA 90 mcg/actuation Hfa Aerosol Inhaler 2 - 4 puff INHALATION Q4H PRN (Reason: copd) RF: 0 losartan 50 mg 50 mg DAILY RF: 0 ranitidine HCl 150 mg 150 mg BID RF: 0 duloxetine 20 mg 40 mg DAILY RF: 0 Discontinued duloxetine 20 mg Capsule,Delayed Release(Dr/Ec) 40 mg PO DAILY RF: 0 Follow up/Referrals: Wild Rao [Primary Care Provider] - Provider Discharge Instructions Diet: Diet as Tolerated Activity: Ambulate as tolerated. Total hip precautions x6 weeks postop. Use walker as needed. Cold/Heat Therapy: Cold pack to left hip is needed. Skin/Wound/Dressing Care Report to your healthcare provider any signs of infection, such as:: chills, fever, night sweats, increased pain, unusual drainage and unusual redness Dressing: Keep CovRsite dressing in place until postop visit. Visit Report/Discharge Packet Instructions: DI for Hip Replacement Discharge Data Primary Care Provider: Wild Rao Attending Provider: Jimmy Peterson Admit Date/Time: 04/29/18 07:46
[2018-05-02 08:00] VITALS: BP 122/67; PULSE 81; RESP 18; TEMP 37.2; O2SAT 97
--- NOTE | 2018-05-02 08:01 | P.DS_ITS ---
History of Present Illness Date Patient Seen: 05/02/18 Time Patient Seen: 07:56 Chief complaint: Left Total Hip Arthroplasty [id number] Narrative: Hospital day 4, postop day 3 for following left total hip arthroplasty. Patient has remained stable. She has progressed more with physical therapy. Has been recommended that she have home health PT because of limited transportation. [facility] will be seen the patient. Pain has improved. Patient ready for discharge home today. Discharge Providers Date of admission: 04/29/18 07:46 Primary care physician: Wild Rao Consults: 04/29/18 12:14 Consult to Discharge Planning Routine Comment: Consult to Physical Therapy Evaluate & Treat Comment: Physician Instructions: post op ERIKA protocol Consult to Respiratory Therapy Evaluate & Treat Comment: Physician Instructions: Evaluate and treat Discharge provider: Rafa Chisholm PA-C Discharge Date: 05/02/18 Summary Discharge Diagnosis: Status post left total hip arthroplasty. Hospital Course: Patient brought to hospital on 04/29/2018 for above noted surgery. She remained stable postoperatively. Slow progression with physical therapy. Ready for discharge home on postop day 3 with home health PT. Status at Discharge Cognitive/behavioral status at discharge: Alert, oriented no acute distress sitting in chair. Functional status at discharge: uses cane/walker Overall status at discharge: patient is progressing back to baseline Time Spent with Patient Less than 30 minutes Exam Vital Signs (past 8 hours): - 05/02/18 04:35 Temperature 98.1 F Pulse Rate 80 Respiratory Rate 16 Blood Pressure 142/72 H Pulse Oximetry 96 Oxygen Delivery Method Room Air Oxygen Flow Rate 0 Narrative Exam Narrative: Legs. Bulky dressing to left hip incision is dry without drainage or inflammation. No calf pain or swelling. Pulses symmetrical. Patient able do full extension from sitting position. Objective Labs Result Diagrams: 04/30/18 06:40 Discharge Plan Discharge Plan Patient Disposition: Home Discharge comment: Patient discharge home after cleared by PT. CovRsite dress ing to left hip incision. Total hip precautions x6 weeks postop. Discharge Med Rec/Prescriptions Prescriptions: New enoxaparin [Lovenox] 40 mg/0.4 mL Syringe 40 mg subcut DAILY Qty: 7 RF: 0 Continued Lantus Solostar U-100 Insulin 100 UNIT/1 ML insulin pen 80 unit SQ QAM Qty: 0 RF: 0 Flovent Diskus 250 MCG blister with device 1 puff INH BID Qty: 0 RF: 0 losartan 50 mg Tablet 50 mg PO BEDTIME RF: 0 atorvastatin 40 mg Tablet 40 mg PO BEDTIME RF: 0 aspirin 81 mg Tablet,Delayed Release (Dr/Ec) 81 mg PO DAILY RF: 0 acetaminophen [Tylenol Extra Strength] 500 mg Tablet 1,000 mg PO TID RF: 0 ranitidine HCl 150 mg Capsule 150 mg PO BID RF: 0 gabapentin 100 mg Capsule 200 mg PO TID RF: 0 ProAir HFA 90 mcg/actuation Hfa Aerosol Inhaler 2 - 4 puff INHALATION Q4H PRN (Reason: copd) RF: 0 losartan 50 mg 50 mg DAILY RF: 0 ranitidine HCl 150 mg 150 mg BID RF: 0 duloxetine 20 mg 40 mg DAILY RF: 0 Discontinued duloxetine 20 mg Capsule,Delayed Release(Dr/Ec) 40 mg PO DAILY RF: 0 Follow up/Referrals: Wild Rao [Primary Care Provider] - Provider Discharge Instructions Diet: Diet as Tolerated Activity: Ambulate as tolerated. Total hip precautions x6 weeks postop. Use walker as needed. Cold/Heat Therapy: Cold pack to left hip is needed. Skin/Wound/Dressing Care Report to your healthcare provider any signs of infection, such as:: chills, fever, night sweats, increased pain, unusual drainage and unusual redness Dressing: Keep CovRsite dressing in place until postop visit. Visit Report/Discharge Packet Instructions: DI for Hip Replacement Discharge Data Primary Care Provider: Wild Rao Attending Provider: Jimmy Peterson Admit Date/Time: 04/29/18 07:46
--- NOTE | 2018-05-02 09:27 | CM.DPC ---
DCP Cont: Patient is being discharged home today. Went ahead and called [facility], and updated Halie. She asked for a discharge summary to be faxed. Went ahead and faxed to her. P: Patient is to be discharged home today. Will have [facility]. Will call her transport number when she is ready. Jess Rivera RN/[employer]
--- NOTE | 2018-05-02 10:15 | PT.IPTN ---
Current Diagnoses Unilateral primary osteoarthritis, left hip (04/29/18) Trochanteric bursitis, left hip (04/29/18) Surgery Performed Operation Date: 04/29/18 10:00 Actual Procedures p Total Hip Arthroplasty(Left) - iJmmy Peterson MD Physical Therapy Treatment Note M2 PT-IP Current Condition Start: 04/29/18 13:58 Freq: NEEDED Status: Active Protocol: Document 04/29/18 13:59 NFW (Rec: 04/29/18 14:30 NFW [id number]) Physical Therapy Current Condition Current Condition Evaluation Date 04/29/18 Treatment Diagnosis Left Hip Osteoarthritis; s/p L ERIKA 04/29/18 Precautions Posterior Hip Precautions No Hip Flexion > 90 degrees No Hip Internal Rotation No Hip Adduction Other Precautions Pacing of activities. Small steps with transfers. Weight Bearing Status Weight Bearing Status Full Weight Bearing M3 PT-IP Subjective Start: 04/29/18 13:58 Freq: NEEDED Status: Active Protocol: Document 05/02/18 10:08 SA (Rec: 05/02/18 10:15 [email or web address]) Subjective Physical Therapy Visit Type Type Treatment Note Visit Start Time 09:13 Visit Stop Time 09:36 Total Visit Minutes 23 Number of MANAGER FILM Visits 3 Physical Therapy Visit Comments Patient Comments Hip pain at about a 5/10 and slept well last night. Patient Goals To return home with her boyfriend to help. Therapy Pain Assessment Pain When Pain Assessed During Mobility Pain Present Pain Present Pain Reported Location Left Hip Intensity 5 Scale Used Numeric (1 - 10) Pain Management Techniques Apply Cold Modification of Treatment Re-positioning Timing of Activity with Medications M4 PT-IP Mobility and Gait Start: 04/29/18 13:58 Freq: NEEDED Status: Active Protocol: Document 05/02/18 10:08 SA (Rec: 05/02/18 10:15 SA [id number]) PT-Transfer Assessment Sit to and From Stand Sit to and from Stand Standby Assistance 1 Person Assistance Equipment Transfer Assistive Device Gait Belt Front Wheeled Walker Orthotic/Prosthetic Devices or Brace: No Transfers Transfer Destination Bed Toilet Transfer Technique Stand Step Pivot Transfer Ability Level of Assist Standby Assistance 1 Person Assistance Comments Mobility Comments Pt up in chair at start of session. Stand pivot txs on/ off toilet and onto BSC in bathroom prior to shower. Pt mobilizing well although gaurded. Gait Assessment Gait Gait Assistance Required: Standby Assistance Contact Guard Assist 1 Person Assist Distance (Feet) 150 Able to Maintain Weight Bearing Status No During Gait Assistive Devices Assistive Device Gait Belt Front Wheeled Walker Orthotic/Prosthetic Devices or Brace: No Gait Deviations General Gait Pattern Antalgic Decreased Stride Length Decreased Feet Clearance Factors Limiting Gait Function Factors Limiting Gait Function Decreased Activity Tolerance Decreased Strength Limited Range of Motion Pain Comments Gait Comments Increased gait distance/ tolerance, pt still antalgic with gait but improving LLE WBing and posture. Stair Climbing Assessment Comments Stair Climbing Comments Pt lives in senior apartment with no stairs to enter. PT-Balance Assessment Sitting Balance and Reactions Static Sitting Balance Ability Normal Dynamic Sitting Balance Ability Normal Comments Other Balance Tests/Deviations/Treatment Pt completed standing heel : raises and lateral stepping at counter, no LOB and good tolerance. M5 PT-IP Objective Assessments Start: 04/29/18 13:58 Freq: NEEDED Status: Active Protocol: Document 04/30/18 11:50 NFW (Rec: 04/30/18 12:53 NFW [id number]) Orientation Orientation/Cognition Level of Alertness Alert M6 PT-IP Treatment Start: 04/29/18 13:58 Freq: NEEDED Status: Active Protocol: Document 05/02/18 10:08 SA (Rec: 05/02/18 10:15 [email or web address]) Physical Therapy Treatment Exercises Exercises Ankle Pumps Gluteal Sets Heel Slides Supine Hip Abduction Education Education Provided Precautions Weight Bearing Status Other Treatments Other Treatment Performed Pt to d/c home today. M7 PT-IP Assessment and Plan Start: 04/29/18 13:58 Freq: NEEDED Status: Active Protocol: Document 05/02/18 10:08 SA (Rec: 05/02/18 10:15 [email or web address]) PT Summary Assessment and Plan Potential Rehabilitation Potential Excellent Status of Condition at Evaluation Stable Summary Assessment Summary Pt progressing well with functional mobility and ready for d/c home today. Able to clear LLE over EOB with use of belt and SBA. Frequency of Treatment Frequency Of Treatment Twice a Day Treatment Plan Physical Therapy Treatment Plan Bed Mobility Training Transfer Training Gait Training Therapeutic Exercise Balance Retraining Post Op Education Hot or Cold Pack Recommendations To Nursing Amount of Assist Needed 1 Person Assist Discharge Recommendations PT Discharge Recommendations Home with Assistance Home Health Other Discharge Recommendations Pt plans to have HHPT after d/ c from hospital. Equipment Needed for Home Before none Discharge [id number]
[2018-05-02] MEDS: ACETAMINOPHEN 325 MG TABLET 975 MG PO (10:38)
[2018-05-02] MEDS: DULOXETINE 20 MG CAPSULE 40 MG PO (10:39)
[2018-05-02] MEDS: ASPIRIN EC 81 MG TABLET PO (10:39)
[2018-05-02] MEDS: ENOXAPARIN 40 MG/0.4 ML SYRINGE SUBCUT (10:40)
[2018-05-02] MEDS: GABAPENTIN 100 MG CAPSULE 200 MG PO (10:40)
[2018-05-02] MEDS: FLUTICASONE 220MCG HFA 120 PUFF INH (11:07)
[2018-05-02 11:09] VITALS: PULSE 85; RESP 16; O2SAT 95
--- NOTE | 2018-05-02 14:49 | CM.DPC ---
DCP Cont: Have been calling transport [employer] since 11:00am for patient, [facility]. They had originally stated that it would take a couple of hours to get back to us on a confirmation time. Had already been given confirmation number of: [id number]. Had spoken to 4 different reps for [place]. They had stated that they would be calling within the next few hours with a time of cigar packer and picker. Did let them know that patient walks with a walker. Patient had received a text stating that they were going to pick her up at 5:00. After she received text, called transportation service again, and they stated that they were going to pick her up any time outside of the hospital. Was able to get in contact with company tanker truck driver, Simone. Phone number was on patient's text. [phone]. He stated that he would wait for her. Nurse, Sharon, is in the process of getting patient ready now. Asked him if he could wait until she was ready, and he stated that he would. P: Patient is to be discharged home via transportation through [facility]. [facility] is aware that patient is discharging today. Jess Rivera RN/Script Girl
--- NOTE | 2018-05-02 14:53 | PT.IPTN ---
Current Diagnoses Unilateral primary osteoarthritis, left hip (04/29/18) Trochanteric bursitis, left hip (04/29/18) Surgery Performed Operation Date: 04/29/18 10:00 Actual Procedures p Total Hip Arthroplasty(Left) - Jimmy Peterson MD Physical Therapy Treatment Note M2 PT-IP Current Condition Start: 04/29/18 13:58 Freq: NEEDED Status: Active Protocol: Document 04/29/18 13:59 NFW (Rec: 04/29/18 14:30 NFW [id number]) Physical Therapy Current Condition Current Condition Evaluation Date 04/29/18 Treatment Diagnosis Left Hip Osteoarthritis; s/p L ERIKA 04/29/18 Precautions Posterior Hip Precautions No Hip Flexion > 90 degrees No Hip Internal Rotation No Hip Adduction Other Precautions Pacing of activities. Small steps with transfers. Weight Bearing Status Weight Bearing Status Full Weight Bearing M3 PT-IP Subjective Start: 04/29/18 13:58 Freq: NEEDED Status: Active Protocol: Document 05/02/18 14:46 SA (Rec: 05/02/18 14:53 [id number]) Subjective Physical Therapy Visit Type Type Treatment Note Visit Start Time 13:48 Visit Stop Time 14:17 Total Visit Minutes 29 Number of BUSINESS EDUCATION PROFESSOR Visits 4 Physical Therapy Visit Comments Patient Comments Pt in bed naping but agreeable to PT, rates hip pain as 6/10 . Therapy Pain Assessment Pain When Pain Assessed During Mobility Pain Present Pain Present Pain Reported Location Left Hip Intensity 6 Scale Used Numeric (1 - 10) Pain Management Techniques Apply Cold Modification of Treatment Re-positioning Timing of Activity with Medications M4 PT-IP Mobility and Gait Start: 04/29/18 13:58 Freq: NEEDED Status: Active Protocol: Document 05/02/18 14:46 SA (Rec: 05/02/18 14:53 [id number]) PT-Bed Mobility Assessment Rolling Type of Rolling Roll to Left Level of Assist Standby Assistance Supine to Sit Supine to Sit Contact Guard Assistance 1 Person Assistance Sit to Supine Sit to Supine Contact Guard Assistance 1 Person Assistance Scooting Scooting to Edge of Bed Standby Assistance Scooting Up and Down in Bed Standby Assistance PT-Transfer Assessment Sit to and From Stand Sit to and from Stand Standby Assistance 1 Person Assistance Equipment Transfer Assistive Device Gait Belt Front Wheeled Walker Orthotic/Prosthetic Devices or Brace: No Transfers Transfer Destination Bed Toilet Transfer Technique Stand Step Pivot Transfer Ability Level of Assist Standby Assistance 1 Person Assistance Comments Mobility Comments Pt able to clear LE over EOB with use of band and CGA, with cues. SBA-CGA for all mobilities. Gait Assessment Gait Gait Assistance Required: Standby Assistance 1 Person Assist Distance (Feet) 175 Able to Maintain Weight Bearing Status No During Gait Assistive Devices Assistive Device Gait Belt Front Wheeled Walker Orthotic/Prosthetic Devices or Brace: No Gait Deviations General Gait Pattern Antalgic Decreased Stride Length Decreased Feet Clearance Factors Limiting Gait Function Factors Limiting Gait Function Decreased Activity Tolerance Decreased Strength Limited Range of Motion Pain Comments Gait Comments Pt continues to decrease WBing through UEs and demonstrates even step length and increasing LLE WBing. Stair Climbing Assessment Comments Stair Climbing Comments Pt lives in senior apartment with no stairs to enter. PT-Balance Assessment Sitting Balance and Reactions Static Sitting Balance Ability Normal Dynamic Sitting Balance Ability Normal Comments Other Balance Tests/Deviations/Treatment Pt SBA with stand pivot txs on : /off toilets and able to manage pants, needs min A with hygiene. M5 PT-IP Objective Assessments Start: 04/29/18 13:58 Freq: NEEDED Status: Active Protocol: Document 04/30/18 11:50 NFW (Rec: 04/30/18 12:53 NFW [id number]) Orientation Orientation/Cognition Level of Alertness Alert M6 PT-IP Treatment Start: 04/29/18 13:58 Freq: NEEDED Status: Active Protocol: Document 05/02/18 14:46 SA (Rec: 05/02/18 14:53 [id number]) Physical Therapy Treatment Exercises Exercises Ankle Pumps Gluteal Sets Heel Slides Supine Hip Abduction Education Education Provided Precautions Weight Bearing Status Other Treatments Other Treatment Performed Pt to d/c home today. M7 PT-IP Assessment and Plan Start: 04/29/18 13:58 Freq: NEEDED Status: Active Protocol: Document 05/02/18 14:46 SA (Rec: 05/02/18 14:53 [id number]) PT Summary Assessment and Plan Potential Rehabilitation Potential Excellent Status of Condition at Evaluation Stable Summary Assessment Summary Pt progressing well with functional mobility and ready for d/c home today. Able to clear LLE over EOB with use of belt and SBA. Frequency of Treatment Frequency Of Treatment Twice a Day Treatment Plan Physical Therapy Treatment Plan Bed Mobility Training Transfer Training Gait Training Therapeutic Exercise Balance Retraining Post Op Education Hot or Cold Pack Recommendations To Nursing Amount of Assist Needed 1 Person Assist Discharge Recommendations PT Discharge Recommendations Home with Assistance Home Health Other Discharge Recommendations Pt plans to have HHPT after d/ c from hospital. Equipment Needed for Home Before none Discharge
--- NOTE | 2018-05-02 14:57 | PC.NURSE ---
Discharge pt states pain controlled with vistaril and norco. Up with PT. Did wait 6 hr after dose this AM and stated pain was up to 6/10, encouraged pt to speak up and request pain meds sooner as well. Discussed pain medical geneticist at home and how to handle her pain. Pt has f/u apt scheduled with Dr Peterson. Told pt to f/u with PCP as well. Aware to contact [facility] with any additional questions or concerns. D/c instructions provided to pt. No PIV in place. Pt states she took all belongings with her including CPAP and FWW. Left in w/c with RN and Student RN escort to [facility].
== END 2018-05-02 14:50 | disposition home health service (06) | DRG 470 ==
PROVIDERS: Admitting Provider Orthopaedic Surgery; Family Provider Ophthalmology; PCP Ophthalmology; Visit Provider Orthopaedic Surgery
PROC: 0SRB0JZ Replacement of Left Hip Joint with Synthetic Substitute, Open Approach (ICD-10-PCS; CPT 27130; principal; 2018-04-29 10:00)
DX: M16.12 Unilateral primary osteoarthritis, left hip (principal); Z68.41 Body mass index [BMI] 40.0-44.9, adult; G47.33 Obstructive sleep apnea (adult) (pediatric); I10 Essential (primary) hypertension; E78.5 Hyperlipidemia, unspecified; M79.7 Fibromyalgia; E11.9 Type 2 diabetes mellitus without complications; F32.9 Major depressive disorder, single episode, unspecified; J44.9 Chronic obstructive pulmonary disease, unspecified; Z87.891 Personal history of nicotine dependence; Z79.4 Long term (current) use of insulin; M70.62 Trochanteric bursitis, left hip; E66.9 Obesity, unspecified
CPT/HCPCS: 36415; 71046; 72170; 82962; 85014; 85018; 94640; 94760; 97116; 97162; 97530; C1776; J0690; J1650; J2250; J2704; J3010